=== PATIENT | male | born 1985 | race Caucasian/White ===

== ENCOUNTER 2020-05-13 10:19 | Inpatient (IN) | payer MEDICAID ==
[~2020-05-13] VITALS: Ht 188 cm; Wt 85.0 kg
[2020-05-13] MEDS ORDERED: DIPHENHYDRAMINE 50 MG/ML, 1ML ONE (10:28)
[2020-05-13] MEDS ORDERED: METOCLOPRAMIDE 5 MG/ML, 2ML ONE (10:28)
[2020-05-13] MEDS ORDERED: SODIUM CHLORIDE FLUSH 10ML SYR IVF ONE (10:30)
[2020-05-13] MEDS ORDERED: SODIUM CHLORIDE 0.9% 1,000ML IVBOLUS ONE ×2 (10:30→12:30)
[2020-05-13] MEDS ORDERED: METOCLOPRAMIDE 5 MG/ML, 2ML IVPush ONE (10:30)
[2020-05-13] MEDS ORDERED: DIPHENHYDRAMINE 50 MG/ML, 1ML IVPush ONE (10:30)
--- NOTE | 2020-05-13 10:39 | NUR ---
PT BIB EMS FOR RLQ PAIN THAT STARTED THIS MORNING. PT WAS SEEN AT [facility] YESTERDAY FOR HEROIN OD. PT WAS BUYING THEODORE THIS MORNING WHEN HE STARTED HAVING ABD PAIN. PT GROANING AND WONT LAY STILL FOR EXAM. PT HAS BEEN MEDICATED PER MAR.
[2020-05-13 11:00] LABS: BASOPHILS % (AUTO) 1 % (0-1); EOSINOPHILS # (AUTO) 0.01 x10^3/uL (0-0.4); EOSINOPHILS % (AUTO) 0 % (1-7); LYMPHOCYTES # (AUTO) 0.92 x10^3/uL (1-3.4); LYMPHOCYTES % (AUTO) 8 % (22-44); MD NO; MEAN CORPUSCULAR HGB CONC 32.5 g/dL (33.2-36.2); MEAN CORPUSCULAR VOLUME 89.1 fL (81-97); MEAN PLATELET VOLUME 7.8 fL (7.4-10.4); MONOCYTES # (AUTO) 0.74 x10^3/uL (0.2-0.8); MONOCYTES % (AUTO) 6 % (2-9); NEUTROPHILS # (AUTO) 9.97 x10^3/uL (1.8-6.8); NEUTROPHILS % (AUTO) 85 % (42-75); PLATELET COUNT 299 x10^3/uL (130-400); RED BLOOD COUNT 4.76 x10^6/uL (4.38-5.82); RED CELL DISTRIBUTION WIDTH 13.3 % (9.4-14.8)
[2020-05-13] MEDS ORDERED: PLEASE ENTER ALLERGIES MC SCH (11:00)
--- NOTE | 2020-05-13 11:22 | NUR ---
PT REFUSING TO PROVIDE UA SAMPLE
[2020-05-13 11:26] LABS: ALANINE AMINOTRANSFERASE 30 U/L (12-78); ALBUMIN 3.7 g/dL (3.4-5.0); ANION GAP 10 mmol/L (5-15); CALCIUM 8.6 mg/dL (8.5-10.1); CHLORIDE 112 mmol/L (98-107); CREATININE 1.35 mg/dL (0.7-1.3)
[2020-05-13 11:28] LABS: ALKALINE PHOSPHATASE 88 U/L (45-117); BILIRUBIN,TOTAL 0.7 mg/dL (0.2-1.0); TOTAL PROTEIN 6.7 g/dL (6.4-8.2)
[2020-05-13] MEDS ORDERED: OMNIPAQUE 350 MG/ML, 100ML BOTTLE ONE (12:02)
[2020-05-13] MEDS ORDERED: LORazepam 2 MG/ML, 1ML ONE (12:25)
[2020-05-13] MEDS ORDERED: LORazepam 2 MG/ML, 1ML IVPush ONE (12:30)
[2020-05-13] MEDS ORDERED: POTASSIUM CHLORIDE 40 MEQ in SODIUM CHLORIDE 0.9% 500 ML IV ONE (12:30)
--- NOTE | 2020-05-13 12:30 | NUR ---
PT STILL UNABLE TO PROVIDE UA. REFUSING STRAIGHT CATH. PT EMOTIONAL ABOUT CHEATING GF AND OTHER SOCIAL ISSUES. PT MEDICATED PER MAR. PT EDUCATED ON PLAN OF CARE. TBADM
--- NOTE | 2020-05-13 12:48 | NUR ---
PT ADMITS TO USING METH THIS MORNING. PT THINKS WE HAVE BEEN TALKING ON THE PHONE TO HIS GIRLFRIEND TELLING HER INFORMATION ABOUT HIM. PT EDUCATED ON LAWS THAT [employer] WORKERS FROM SHARING INFORMATION WITH OTHERS WITHOUT CONSENT
[2020-05-13] MEDS ORDERED: SODIUM CHLORIDE 0.9% 1,000 ML IV SCH (13:21)
[2020-05-13] MEDS ORDERED: LORazepam 2 MG/ML, 1ML IV PRN ×3 (13:30)
[2020-05-13] MEDS ORDERED: ACETAMINOPHEN 325 MG TABLET PO PRN (13:30)
[2020-05-13] MEDS ORDERED: ONDANSETRON 2MG/ML, 2ML IVPush PRN (13:30)
[2020-05-13] MEDS ORDERED: LORazepam 1MG TABLET PO PRN ×2 (13:30)
[2020-05-13] MEDS ORDERED: ONDANSETRON ODT 4 MG PO PRN (13:30)
[2020-05-13] MEDS ORDERED: HEPARIN 5,000 UNITS/ML, 1ML SQ SCH (13:30)
[2020-05-13] MEDS ORDERED: METHADONE 10 MG TABLET PO PRN (13:30)
[2020-05-13] MEDS ORDERED: LORazepam 0.5MG TABLET PO PRN (13:30)
[2020-05-13] MEDS ORDERED: LORazepam 1MG TABLET ONE (14:22)
--- NOTE | 2020-05-13 14:24 | NUR ---
PT AGITATED, CRYING, RESTLESS. MEDICATED IN ACCORDANCE WITH CIWA PROTOCOL
[2020-05-13 15:43] VITALS: BP 118/77
[2020-05-13] MEDS ORDERED: METHYLNALTREXONE 12 MG/0.6 ML SYR SQ ONE (15:43)
[2020-05-14] MEDS ORDERED: SENNA/DOCUSATE TABLET PO SCH (09:00)
== END 2020-05-13 17:22 | disposition left against medical advice (07) | DRG 392 ==
LOC: ED 12:32 → EDIP 13:21 → 5SO 15:37
PROVIDERS: ADMIT Internal Medicine; ATTEND Internal Medicine
DX: K59.03 Drug induced constipation (principal); N17.9 Acute kidney failure, unspecified; R65.10 Systemic inflammatory response syndrome (SIRS) of non-infectious origin without acute organ dysfunction; E87.6 Hypokalemia; F10.10 Alcohol abuse, uncomplicated; F11.10 Opioid abuse, uncomplicated; F15.959 Other stimulant use, unspecified with stimulant-induced psychotic disorder, unspecified; G47.00 Insomnia, unspecified; Y90.9 Presence of alcohol in blood, level not specified; T40.605A Adverse effect of unspecified narcotics, initial encounter
CPT/HCPCS: 36415; 74177; 80053; 83690; 85025; 87806; 93005; G0378; J3480; Q9967; G0475; J1200; J2060; J2765; J7030; J7040

== ENCOUNTER 2020-05-15 09:20 | Emergency (ER) | payer MEDICAID ==
[~2020-05-15] VITALS: Ht 188 cm; Wt 89.0 kg
[2020-05-15] MEDS ORDERED: LORazepam 1MG TABLET ONE ×2 (10:22→11:46)
[2020-05-15 10:27] LABS: BASOPHILS # (AUTO) 0.05 x10^3/uL (0-0.1); BASOPHILS % (AUTO) 1 % (0-1); EOSINOPHILS % (AUTO) 0 % (1-7); LYMPHOCYTES # (AUTO) 0.91 x10^3/uL (1-3.4); LYMPHOCYTES % (AUTO) 11 % (22-44); MD NO; MEAN CORPUSCULAR HEMOGLOBIN 29.1 pg (27.5-34.5); MEAN CORPUSCULAR HGB CONC 32.4 g/dL (33.2-36.2); MEAN PLATELET VOLUME 7.4 fL (7.4-10.4); MONOCYTES # (AUTO) 0.46 x10^3/uL (0.2-0.8); MONOCYTES % (AUTO) 6 % (2-9); NEUTROPHILS # (AUTO) 6.76 x10^3/uL (1.8-6.8); NEUTROPHILS % (AUTO) 83 % (42-75); PLATELET COUNT 257 x10^3/uL (130-400); RED BLOOD COUNT 4.35 x10^6/uL (4.38-5.82); RED CELL DISTRIBUTION WIDTH 13.7 % (9.4-14.8)
[2020-05-15] MEDS ORDERED: LORazepam 1MG TABLET PO ONE ×2 (10:30→12:00)
[2020-05-15 10:33] LABS: ANION GAP 5 mmol/L (5-15); CALCIUM 8.2 mg/dL (8.5-10.1); CHLORIDE 110 mmol/L (98-107); CREATININE 1.09 mg/dL (0.7-1.3)
[2020-05-15 10:34] LABS: ALBUMIN 3.4 g/dL (3.4-5.0)
[2020-05-15] MEDS ORDERED: ZIPRASIDONE 20 MG INJ IM ONE ×2 (11:45→12:00)
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
--- NOTE | 2020-05-15 12:30 | NUR ---
pt is currently resting calmly in bed with eyes closed. pt on cardiac and vitals monitors. will continue to monitor.
--- NOTE | 2020-05-15 12:36 | NUR ---
FLOOR FRAMER CAME TO SPEAK WITH PT ABOUT COMMUNITY [employer]OURCES. PT RESTING WITH EYES CLOSED. FLOOR FRAMER UPDATED THAT PT WILL NOW BE EVALUTED BY PSYCH WEEKEND RECEPTIONIST DUE TO SUDDEN CHANGE IN BEHAVIOR.
--- NOTE | 2020-05-15 13:19 | NUR ---
PT CONTINUES TO REST CALMLY IN BED WITH EYES CLOSED. PT AWAITING PSYCH TYPECASTING MACHINE OPERATOR TO COME EVAL FOR POSSIBLE LEGAL 2000.
--- NOTE | 2020-05-15 14:04 | NUR ---
PT RESTING CALMLY IN BED WITH EYES CLOSED. NO STATED NEEDS AT THIS TIME.
--- NOTE | 2020-05-15 14:15 | NUR ---
PSYCH DUMPSTER OPERATOR HERE TO SEE PT.
[2020-05-15 15:33] LABS: SALICYLATE LEVEL < 1.7 mg/dL (2.8-20.0)
[2020-05-15 16:02] VITALS: BP 109/57
== END 2020-05-15 16:31 | disposition home or self-care (01) ==
LOC: ED 10:38
DX: F11.14 Opioid abuse with opioid-induced mood disorder (principal); F15.14 Other stimulant abuse with stimulant-induced mood disorder; F29 Unspecified psychosis not due to a substance or known physiological condition; R53.1 Weakness; I45.10 Unspecified right bundle-branch block; Z72.9 Problem related to lifestyle, unspecified
CPT/HCPCS: 36415; 80048; 80307; 82040; 85025; 93005; 96372; 99285; J3486

== ENCOUNTER 2020-06-12 15:20 | Emergency (ER) | payer MEDICAID ==
[~2020-06-12] VITALS: Ht 188 cm; Wt 84.2 kg
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
[2020-06-12] MEDS ORDERED: METH10TA2 PO (15:45)
--- NOTE | 2020-06-12 15:50 | NUR ---
REPORT TO DONIS ORTEZ, PLAN OF CARE DISCUSSED.
--- NOTE | 2020-06-12 15:51 | NUR ---
REPORT FROM LADI ORTEZ
[2020-06-12] MEDS ORDERED: LORazepam 1MG TABLET ONE (16:13)
--- NOTE | 2020-06-12 16:19 | NUR ---
PROVIDED WITH MEAL TRAY SPENT 10 MINUTES RE-DIRECTING PATIENT'S SORROW. OFFERING SOMEONE TO LISTEN TO [facility] MEDICATED PER EMAR WITH MEDICATION FOR ANXIETY
[2020-06-12 16:28] LABS: BASOPHILS % (AUTO) 1 % (0-1); EOSINOPHILS % (AUTO) 0 % (1-7); LYMPHOCYTES % (AUTO) 15 % (22-44); MEAN CORPUSCULAR HEMOGLOBIN 28.9 pg (27.5-34.5); MEAN PLATELET VOLUME 7.7 fL (7.4-10.4); MONOCYTES % (AUTO) 7 % (2-9); NEUTROPHILS % (AUTO) 77 % (42-75); PLATELET COUNT 371 x10^3/uL (130-400); RED BLOOD COUNT 5.55 x10^6/uL (4.38-5.82); RED CELL DISTRIBUTION WIDTH 13.1 % (9.4-14.8)
[2020-06-12] MEDS ORDERED: LORazepam 1MG TABLET PO ONE (16:30)
[2020-06-12 16:31] LABS: MD NO
[2020-06-12 16:38] LABS: ALANINE AMINOTRANSFERASE 22 U/L (12-78); ALBUMIN 4.3 g/dL (3.4-5.0); ANION GAP 6 mmol/L (5-15); CALCIUM 9.4 mg/dL (8.5-10.1); CHLORIDE 106 mmol/L (98-107); CREATININE 1.56 mg/dL (0.7-1.3)
[2020-06-12 16:41] LABS: SALICYLATE LEVEL < 1.7 mg/dL (2.8-20.0)
[2020-06-12 16:43] LABS: ALKALINE PHOSPHATASE 103 U/L (45-117); TROPONIN I < 0.015 ng/mL (0.000-0.045)
[2020-06-12 16:51] LABS: AMPHETAMINE SCREEN, URINE Positive (Negative); BARBITURATE SCREEN, URINE Negative (Negative); BENZODIAZEPINE SCREEN, URINE Negative (Negative); CANNABINOID SCREEN, URINE Positive (Negative); COCAINE SCREEN, URINE Negative (Negative); METHADONE SCREEN, URINE Positive (Negative); OPIATE SCREEN, URINE Negative (Negative)
[2020-06-12 17:24] VITALS: BP 167/70
== END 2020-06-12 17:27 | disposition home or self-care (01) ==
LOC: ED 17:20
DX: F15.20 Other stimulant dependence, uncomplicated (principal); R00.0 Tachycardia, unspecified; F41.1 Generalized anxiety disorder; F32.9 Major depressive disorder, single episode, unspecified; R00.9 Unspecified abnormalities of heart beat
CPT/HCPCS: 36415; 71045; 80053; 80307; 84484; 85025; 93005; 99285

== ENCOUNTER 2020-06-15 08:16 | Emergency (ER) | payer MEDICAID ==
[~2020-06-15] VITALS: Ht 188 cm; Wt 88.2 kg
[~2020-06-15 08:16] MED LIST: METH10TA2 PO
[2020-06-15 08:30] VITALS: BP 138/93
--- NOTE | 2020-06-15 09:05 | NUR ---
PT IN THE SHOWER PER REQUEST, ED DIET TRAY ORDERED
--- NOTE | 2020-06-15 11:00 | NUR ---
PT IS CRYING UNCONTROLABLY, INSISITING HE SPEAK WITH THE PROVIDER AGAIN. PT WOULD LIKE A SCRIPT FOR ANXIETY. PROVIDER NOTIFIED.
== END 2020-06-15 11:26 | disposition home or self-care (01) ==
LOC: ED 09:00
DX: F19.10 Other psychoactive substance abuse, uncomplicated (principal); F17.200 Nicotine dependence, unspecified, uncomplicated
CPT/HCPCS: 99283

== ENCOUNTER 2020-07-30 09:14 | Emergency (ER) | payer MEDICAID ==
[~2020-07-30] VITALS: Ht 188 cm; Wt 83.0 kg
[2020-07-30 09:36] VITALS: BP 135/80
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
[2020-07-30] MEDS ORDERED: LORazepam 1MG TABLET PO ONE (10:30)
[2020-07-30 10:34] LABS: BASOPHILS % (AUTO) 0 % (0-1); EOSINOPHILS % (AUTO) 0 % (1-7); LYMPHOCYTES % (AUTO) 15 % (22-44); MEAN CORPUSCULAR HEMOGLOBIN 28.6 pg (27.5-34.5); MEAN CORPUSCULAR HGB CONC 32.9 g/dL (33.2-36.2); MEAN PLATELET VOLUME 7.5 fL (7.4-10.4); MONOCYTES % (AUTO) 7 % (2-9); NEUTROPHILS % (AUTO) 78 % (42-75); PLATELET COUNT 308 x10^3/uL (130-400); RED BLOOD COUNT 5.39 x10^6/uL (4.38-5.82); RED CELL DISTRIBUTION WIDTH 13.1 % (9.4-14.8)
[2020-07-30 10:36] LABS: ALANINE AMINOTRANSFERASE 15 U/L (12-78); ANION GAP 6 mmol/L (5-15); CHLORIDE 106 mmol/L (98-107); CREATININE 1.22 mg/dL (0.7-1.3)
[2020-07-30 10:38] LABS: SALICYLATE LEVEL < 1.7 mg/dL (2.8-20.0)
[2020-07-30 10:39] LABS: ALKALINE PHOSPHATASE 90 U/L (45-117); BILIRUBIN,TOTAL 0.9 mg/dL (0.2-1.0); TOTAL PROTEIN 7.6 g/dL (6.4-8.2)
[2020-07-30 10:40] LABS: MD NO
== END 2020-07-30 10:10 | disposition left against medical advice (07) ==
LOC: ED 10:04
DX: F32.9 Major depressive disorder, single episode, unspecified (principal); F11.20 Opioid dependence, uncomplicated; F15.20 Other stimulant dependence, uncomplicated; R45.851 Suicidal ideations; Z72.9 Problem related to lifestyle, unspecified
CPT/HCPCS: 36415; 80053; 80299; 80320; 80329; 85025; 99283; G0480

== ENCOUNTER 2020-08-02 04:55 | Emergency (ER) | payer MEDICAID ==
[~2020-08-02] VITALS: Ht 188 cm; Wt 95.0 kg
[2020-08-02 05:51] LABS: BASOPHILS % (AUTO) 1 % (0-1); EOSINOPHILS % (AUTO) 1 % (1-7); LYMPHOCYTES % (AUTO) 18 % (22-44); MEAN CORPUSCULAR HEMOGLOBIN 28.7 pg (27.5-34.5); MEAN PLATELET VOLUME 7.3 fL (7.4-10.4); MONOCYTES % (AUTO) 10 % (2-9); NEUTROPHILS % (AUTO) 70 % (42-75); PLATELET COUNT 281 x10^3/uL (130-400); RED BLOOD COUNT 5.43 x10^6/uL (4.38-5.82); RED CELL DISTRIBUTION WIDTH 13.2 % (9.4-14.8)
[2020-08-02 06:03] LABS: MD NO
[2020-08-02 06:28] VITALS: BP 126/72
== END 2020-08-02 06:31 | disposition home or self-care (01) ==
LOC: ED 05:11
DX: F15.159 Other stimulant abuse with stimulant-induced psychotic disorder, unspecified (principal); F41.9 Anxiety disorder, unspecified
CPT/HCPCS: 36415; 85025; 99283

== ENCOUNTER 2020-08-05 02:43 | Emergency (ER) | payer MEDICAID ==
[~2020-08-05] VITALS: Ht 188 cm; Wt 85.0 kg
[2020-08-05 02:46] VITALS: BP 132/75
--- NOTE | 2020-08-05 02:56 | NUR ---
Pt standing at door way asking where the doctor is. Rn Intensive Care Unit informed patient that the doctor would be in a minute. Patient states that the just need antibodics. Patient ambulating out of the ER, patient eloped. Provider aware.
== END 2020-08-05 03:03 | disposition left against medical advice (07) ==
LOC: ED 02:55
DX: L03.113 Cellulitis of right upper limb (principal); L03.114 Cellulitis of left upper limb; Z53.21 Procedure and treatment not carried out due to patient leaving prior to being seen by health care provider

== ENCOUNTER 2020-09-25 10:29 | Emergency (ER) | payer MEDICAID ==
[~2020-09-25] VITALS: Ht 177.8 cm; Wt 72.7 kg
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
[2020-09-25] MEDS ORDERED: LORazepam 1MG TABLET ONE (10:47)
[2020-09-25] MEDS ORDERED: LORazepam 1MG TABLET PO ONE (11:00)
--- NOTE | 2020-09-25 11:05 | NUR ---
PT TAKEN TO IMAGING IN STABLE CONDITION.
[2020-09-25 11:32] VITALS: BP 138/82
--- NOTE | 2020-09-25 11:32 | NUR ---
PT RESTING ON GURNEY. NADN. HAUSER.
--- NOTE | 2020-09-25 11:51 | NUR ---
WENT IN TO REASSESS PT AND ROOM NOTED TO BE EMPTY W/ NO PERSONAL BELONGINGS FOUND IN ROOM. UNIT ASSESSED W/ NO SIGNS OF PT.
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
== END 2020-09-25 11:53 | disposition left against medical advice (07) ==
LOC: ED 10:36
DX: M25.571 Pain in right ankle and joints of right foot (principal); F15.150 Other stimulant abuse with stimulant-induced psychotic disorder with delusions; F17.210 Nicotine dependence, cigarettes, uncomplicated
CPT/HCPCS: 36415; 71045; 82375; 99284

== ENCOUNTER 2020-09-25 12:26 | Emergency (ER) | payer MEDICAID ==
[~2020-09-25] VITALS: Ht 188 cm; Wt 79.2 kg
--- NOTE | 2020-09-25 12:40 | NUR ---
PT SEEN LEAVING DEPARTMENT, GAIT STEADY. "I'LL GO TO A DIFFERENT HOSPITAL THEN"
== END 2020-09-25 12:42 | disposition left against medical advice (07) ==
LOC: ED 12:31
DX: R06.89 Other abnormalities of breathing (principal); Z53.21 Procedure and treatment not carried out due to patient leaving prior to being seen by health care provider

== ENCOUNTER 2020-10-01 07:56 | Emergency (ER) | payer MEDICAID ==
[~2020-10-01] VITALS: Ht 188 cm; Wt 90.0 kg
--- NOTE | 2020-10-01 08:25 | NUR ---
Pt here for R ankle pain, states HX of multiple surgeries with infection. Ankle appears mildly swollen. Denies injury, states "Blanca been walking on it a lot".
[2020-10-01] MEDS ORDERED: KETOROLAC 30 MG/1 ML IM ONE (08:30)
[2020-10-01] MEDS ORDERED: KETOROLAC 30 MG/1 ML ONE (08:31)
[2020-10-01 08:44] LABS: BASOPHILS % (AUTO) 1 % (0-1); EOSINOPHILS % (AUTO) 2 % (1-7); LYMPHOCYTES % (AUTO) 28 % (22-44); MEAN CORPUSCULAR HEMOGLOBIN 29.1 pg (27.5-34.5); MEAN CORPUSCULAR HGB CONC 33.4 g/dL (33.2-36.2); MEAN PLATELET VOLUME 7.8 fL (7.4-10.4); MONOCYTES % (AUTO) 10 % (2-9); NEUTROPHILS % (AUTO) 59 % (42-75); PLATELET COUNT 244 x10^3/uL (130-400); RED BLOOD COUNT 4.65 x10^6/uL (4.38-5.82); RED CELL DISTRIBUTION WIDTH 13.9 % (9.4-14.8)
[2020-10-01 08:46] LABS: MD NO
[2020-10-01 08:53] LABS: ALBUMIN 3.4 g/dL (3.4-5.0); ANION GAP 4 mmol/L (5-15); CALCIUM 8.4 mg/dL (8.5-10.1); CHLORIDE 113 mmol/L (98-107); CREATININE 0.99 mg/dL (0.7-1.3)
--- NOTE | 2020-10-01 09:07 | NUR ---
Pt request for anxiety medication, provider aware.
[2020-10-01] MEDS ORDERED: hydrOXyzine 50MG TABLET ONE (09:16)
[2020-10-01 09:21] VITALS: BP 103/50
--- NOTE | 2020-10-01 09:22 | NUR ---
Medicated for anxiety
--- NOTE | 2020-10-01 09:27 | NUR ---
Splint applied, crutches provided
== END 2020-10-01 09:30 | disposition home or self-care (01) ==
LOC: ED 08:08
DX: L03.115 Cellulitis of right lower limb (principal); M25.571 Pain in right ankle and joints of right foot; M79.89 Other specified soft tissue disorders; F17.210 Nicotine dependence, cigarettes, uncomplicated
CPT/HCPCS: 36415; 80048; 82040; 85025; 96372; 99283; 99406; J1885; Q0177

== ENCOUNTER 2020-11-30 09:36 | Emergency (ER) | payer MEDICAID ==
[~2020-11-30] VITALS: Ht 188 cm; Wt 86.0 kg
[2020-11-30 09:44] VITALS: BP 99/65
--- NOTE | 2020-11-30 10:08 | NUR ---
APPRAISER LAND: PT TO ROOM FROM LOBBY, GAIT SLOW AND STEADY
[2020-11-30] MEDS ORDERED: ASPIRIN 81 MG TABLET CHEW ONE (10:43)
--- NOTE | 2020-11-30 10:56 | NUR ---
PT REFUSED ASPIRIN. "ITS BAD FOR THE LIVER, I DONT TAKE ASPIRIN"
[2020-11-30] MEDS ORDERED: ASPIRIN 81 MG TABLET CHEW PO ONE (11:00)
[2020-11-30 11:11] LABS: ALBUMIN 3.9 g/dL (3.4-5.0); ANION GAP 2 mmol/L (5-15); CALCIUM 8.3 mg/dL (8.5-10.1); CHLORIDE 110 mmol/L (98-107); CREATININE 1.06 mg/dL (0.7-1.3)
[2020-11-30 11:15] LABS: TROPONIN I < 0.015 ng/mL (0.000-0.045)
[2020-11-30 11:17] LABS: BASOPHILS % (AUTO) 1 % (0-1); EOSINOPHILS % (AUTO) 2 % (1-7); LYMPHOCYTES % (AUTO) 31 % (22-44); MEAN CORPUSCULAR HEMOGLOBIN 29.8 pg (27.5-34.5); MEAN CORPUSCULAR HGB CONC 33.4 g/dL (33.2-36.2); MEAN PLATELET VOLUME 7.9 fL (7.4-10.4); MONOCYTES % (AUTO) 8 % (2-9); NEUTROPHILS % (AUTO) 58 % (42-75); PLATELET COUNT 252 x10^3/uL (130-400); RED CELL DISTRIBUTION WIDTH 14.2 % (9.4-14.8)
[2020-11-30 11:22] LABS: MD NO
--- NOTE | 2020-11-30 11:35 | NUR ---
PT IN NO ACUTE DISTRESS. NO IV TO DC. AIR STIRRUP SPLINT IN PLACE. REVIEWED DC INSTRUCTIONS WITH PT, UNDERSTANDING VERBALIZED. PT LEFT AMB, GAIT STEADY.
== END 2020-11-30 11:37 | disposition home or self-care (01) ==
LOC: ED 11:22
DX: R07.89 Other chest pain (principal); G89.29 Other chronic pain; M25.571 Pain in right ankle and joints of right foot; F17.210 Nicotine dependence, cigarettes, uncomplicated
CPT/HCPCS: 36415; 71045; 80048; 82040; 84484; 85025; 93005; 99285